=== PATIENT | male | born 1955 | race Caucasian/White ===

== ENCOUNTER 2021-01-18 08:34 | Outpatient (CLI) | payer OTHER, SELFPAY ==
--- NOTE | 2021-01-18 08:45 | ECG_ITS ---
Measurements Intervals [place] Rate: 80 P: 65 DE: 238 QRS: -16 QRSD: 95 T: -50 QT: 383 QTc: 444 Interpretive Statements SINUS RHYTHM WITH FIRST DEGREE AV BLOCK LOW QRS VOLTAGE IN PRECORDIAL LEADS BORDERLINE R WAVE PROGRESSION, ANTERIOR LEADS INFERIOR INFARCT, AGE INDETERMINATE BORDERLINE T WAVE ABNORMALITY- HIGH LATERAL LEADS BASELINE ARTIFACT- I, II, III, AVR, AVL, AVF ABNORMAL ECG Electronically Signed On 01-18-2021 9:13:32 CDT by Quentin Liriano D.O.
[2021-01-18 10:07] LABS: Anion Gap 6 mmol/L (8-16); Blood Urea Nitrogen 16 mg/dL (9-20); Calcium 9.5 mg/dL (8.4-10.2); Carbon Dioxide 30 mmol/L (22-30); Chloride 105 mmol/L (98-107); Estimated Glomerular Filt Rate > 60; Glucose 103 mg/dL (75-110); Potassium 3.7 mmol/L (3.4-5.0); Sodium 141 mmol/L (137-145)
== END 2021-01-18 08:35 | disposition home or self-care (01) ==
PROVIDERS: Anesthesiology; PCP Family Medicine; Visit Provider Plastic Surgery
DX: Z79.899 Other long term (current) drug therapy (principal); E78.2 Mixed hyperlipidemia; F17.210 Nicotine dependence, cigarettes, uncomplicated; I10 Essential (primary) hypertension; Z01.818 Encounter for other preprocedural examination
CPT/HCPCS: 36415; 80048; 93005

== ENCOUNTER → 2021-01-20 01:25 | Outpatient (CLI) | payer OTHER, SELFPAY ==
[2021-01-20 19:13] LABS: SARS-CoV-2 RNA PCR Negative
== END ==
PROVIDERS: PCP Family Medicine; Visit Provider Plastic Surgery
DX: Z01.812 Encounter for preprocedural laboratory examination (principal); Z20.822 Contact with and (suspected) exposure to COVID-19
CPT/HCPCS: C9803; U0003; U0005

== ENCOUNTER 2021-01-24 03:13 | Day surgery (SDC) | payer OTHER, SELFPAY ==
[2021-01-17 09:52] VITALS: BMI 35.9
[2021-01-24 07:22] VITALS: BP 133/83; PULSE 80; RESP 16; TEMP 36.4; O2SAT 96
[2021-01-24] MEDS: LACTATED RINGERS 1,000 ML 30 ML IV CONT (07:30)
--- NOTE | 2021-01-24 07:35 | WPDHPUPDATE1 ---
History and Physical Update Update Date/Time: 01/24/21 07:35 History and Physical has been reviewed, including an updated exam of the patient. There are NO changes in the patient's condition. Risks, benefits, and alternatives have been discussed and questions answered. Patient agrees to proceed with procedure.
--- NOTE | 2021-01-24 07:35 | WPDANESEPPF ---
Anes - Initial Pre Proc Eval Procedure: Operation Date: 01/24/21 09:00 Proposed Procedures p Bilateral Open Carpal Tunnel Release - Todd Panchal MD Date/Time: 01/24/21 07:35 Surgeon: Todd Panchal MD Pre Op Diagnosis: Bilateral Carpal Tunnel Syndrome Patient Data Age: 65 Gender: M Height: 1.83 m Weight: 120 kg Allergies Allergy/AdvReac Type Severity Reaction Status Date / Time No Known Allergies Allergy Verified 01/24/21 07:27 Home Medications Medication Instructions Recorded Confirmed Type lisinopril 20 1 tablet PO BID #180 tablet 12/30/19 01/24/21 Rx mg-hydrochlorothiazide 12.5 mg tablet amlodipine 10 mg tablet 10 mg PO DAILY #90 tablet 05/18/20 01/24/21 Rx atorvastatin 40 mg tablet 40 mg PO DAILY #90 tablet 05/18/20 01/24/21 Rx allopurinol 300 mg tablet 300 mg PO DAILY #90 tablet 11/15/20 01/24/21 Rx Patient hx anesthesia problems: none Family hx anesthesia problems: none PMFSH Past Medical History Medical History (Updated 01/24/21 @ 07:36 by Jovani Finley DO) Benign hypertension Hypothyroid Mixed hyperlipidemia Family History Family History Father Heart disease Grandparent Diabetes mellitus Family history of glaucoma Family history of cardiovascular disease Cerebrovascular accident Family history of type 2 diabetes mellitus Father Malignant neoplasm of prostate Other No family history of diabetes mellitus No family history of hypertension No family history of malignant neoplasm Social History Social History Smoking packs per day: 1 Smoking cigarettes per day: 20.0 Years smoked: 30 Smoking pack-years: 30.00 Smoking end date: 11/03/10 Alcohol intake: current Alcohol use details: SOCIAL - A COUPLE TIMES A WEEK Substance use: never Substance use type: does not use Living arrangements: with family Spiritual care concerns: No Anes - Eval Final PreProcedure Day of Procedure 01/24/21 07:35 Patient weight: obese Heart: regular rate and rhythm Lungs: clear to auscultation and normal air movement Airway: Mallampati scale class III Neurological: alert and oriented Last oral intake: >/= 8 hours ASA classification: III Emergent: no Anesthetic plan: proceed Anesthesia type and monitoring: general GIVS and standard monitoring Informed Consent: The patient's anesthetic plan and its attendant risks and benefits were discussed with the patient/family/POA. Questions were solicited and answers provided to the satisfaction of the patient/family/POA.
--- NOTE | 2021-01-24 08:01 | PM.OP ---
Procedure Note - Brief Procedure Note - Brief Date of procedure: 01/24/21 Pre-op diagnosis: Bilateral Carpal Tunnel Syndrome Post-op diagnosis: same Procedure performed: B OCTR Anesthesia: MAC Surgeon: Todd Panchal MD Drains: No Packing: No Pathology: none sent Complications: No immediate complications Condition: stable Disposition: same day
[2021-01-24] MEDS: LIDO 1%/EPINEPHRINE 1:100,000 50 ML VIAL 10 ML INFILTRATE (08:15)
[2021-01-24] MEDS: BACITRACIN OINTMENT 15 GM TUBE 1 APPLIC TOPICAL (08:36)
[2021-01-24 08:39] VITALS: BP 110/59; PULSE 78; RESP 14; O2SAT 93
--- NOTE | 2021-01-24 08:48 | PM.PROC ---
Procedure Note - Detailed Date of procedure: 01/24/21 Pre-op diagnosis: Bilateral Carpal Tunnel Syndrome Post-op diagnosis: same Procedure performed: Bilateral open carpal tunnel release Description of procedure: The 2 sites were marked in holding area. He was taken to the operating room and placed supine on the operating table. A time-out was held and confirmed. The patient was given some IV sedation as the 2 extremities were prepped on separate hand tables. Each was marked for the incision and locally infiltrated with 1% lidocaine with epinephrine the right hand was done 1st started with elevation of the tourniquet to 250 mmHg. The incision was made in the palm and dissection was carried bluntly through the subcutaneous tissue to the palmar aponeurosis. This and the transverse carpal ligament were incised with a 15. Blade. Under 3 point retraction the ligament was visualized and divided distally and proximally to completely release it. There was no unusual anatomy noted. The skin was closed with interrupted 4-0 nylon suture small bandage with Johnnie wrap was applied the tourniquet was released. Attention turned to left side the tourniquet was elevated to 250 mmHg. The incision was made as marked in the dissection was carried bluntly through the subcutaneous tissue to the palmar aponeurosis. This and the transverse carpal ligament were incised with a number 15 blade opening the canal. Under 3 point retraction the ligament was visualized and divided distally and proximally for complete release. The skin wound was closed with interrupted 4-0 nylon suture. The usual bandage applied the tourniquet was released. Discharge instructions wound care and follow-up and a prescription for hydrocodone 5/325 10. Surgeon: Todd Panchal MD
[2021-01-24 09:00] VITALS: BP 128/64; PULSE 71; RESP 20
[2021-01-24 09:40] VITALS: BP 120/65; PULSE 67; RESP 20
== END 2021-01-24 09:45 | disposition home or self-care (01) ==
PROVIDERS: PCP Family Medicine; Visit Provider Plastic Surgery
PROC: (CPT 64721; principal; 2021-01-24 09:00)
DX: G56.03 Carpal tunnel syndrome, bilateral upper limbs (principal); I10 Essential (primary) hypertension; E78.2 Mixed hyperlipidemia; E03.9 Hypothyroidism, unspecified; Z87.891 Personal history of nicotine dependence; E66.9 Obesity, unspecified; Z68.34 Body mass index [BMI] 34.0-34.9, adult
CPT/HCPCS: 64721; 36415; 80048; 93005; A9270; C9803; J1100; J2250; J2405; J2704; J7120; U0003; U0005

== ENCOUNTER 2021-12-13 07:18 | Outpatient (CLI) | payer MEDICARE, SELFPAY ==
[2021-12-13 07:55] LABS: Basophils Percent Auto 0.5 % (0.2-1.2); Eosinophils Absolute Auto 0.1 K/mm3 (0-0.3); Hematocrit 50.6 % (42.0-52.0); Hemoglobin 16.8 g/dL (14.0-18.0); Immature Granulocyte Absolute 0.01 K/mm3 (0.00-0.031); Immature Granulocyte Percent A 0.2 % (0-0.5); Lymphocytes Absolute Auto 2.33 K/mm3 (0.9-3.2); Lymphocytes Percent Auto 35.7 % (18.3-44.2); Mean Corpuscular HGB Conc 33.2 g/dl (32-36); Mean Corpuscular Hemoglobin 32.6 pg (26-34); Mean Corpuscular Volume 98.1 fl (80-100); Mean Platelet Volume 9.8 fl (7.4-10.4); Monocytes Absolute Auto 0.6 K/mm3 (0.1-0.6); Monocytes Percent Auto 8.4 % (2.6-8.5); Neutrophils Absolute Auto 3.5 K/mm3 (1.3-6.7); Neutrophils Percent Auto 53.2 % (45.5-73.1); Platelet Count Result 205 k/mm3 (150-375); Red Blood Count 5.16 M/mm3 (4.6-6.20); Red Cell Distribution Width 12.9 % (11.5-14.5); White Blood Count 6.5 K/mm3 (4.5-10.0)
[2021-12-13 08:08] LABS: Alanine Aminotransferase 68 U/L (4-50); Albumin Level 4.5 g/dL (3.5-5.1); Alkaline Phosphatase 89 U/L (38-126); Anion Gap 8 mmol/L (8-16); Aspartate Amino Transferase 44 U/L (17-59); Bilirubin,Total 0.7 mg/dL (0.2-1.3); Blood Urea Nitrogen 19 mg/dL (9-20); Calcium 9.3 mg/dL (8.4-10.2); Carbon Dioxide 28 mmol/L (22-30); Chloride 106 mmol/L (98-107); Cholesterol 154 mg/dL (0-200); Estimated Glomerular Filt Rate > 60; Glucose 99 mg/dL (65-110); HDL Direct 33 mg/dL; Potassium 4.2 mmol/L (3.4-5.0); Sodium 142 mmol/L (137-145); Triglycerides 137 mg/dL (<150)
[2021-12-13 08:13] LABS: Hemoglobin A1C 5.8 % (<5.7)
[2021-12-13 08:19] LABS: LDL Cholesterol Direct 90 mg/dL
[2021-12-13 08:38] LABS: Prostate Specific Antigen 1.2 ng/mL (< OR = 4.0); Thyroid Stimulating Hormone 0.936 uIU/mL (0.465-4.680)
== END 2021-12-13 07:19 | disposition home or self-care (01) ==
PROVIDERS: PCP Family Medicine; Visit Provider Family Medicine
DX: R73.03 Prediabetes (principal); E03.9 Hypothyroidism, unspecified; E78.2 Mixed hyperlipidemia; I10 Essential (primary) hypertension; Z79.899 Other long term (current) drug therapy; Z12.5 Encounter for screening for malignant neoplasm of prostate
CPT/HCPCS: 36415; 80053; 80061; 83036; 84153; 84439; 84443; 85025; G0103

== ENCOUNTER 2022-11-18 01:21 | Day surgery (SDC) | payer MEDICARE, SELFPAY ==
[2022-10-31 14:14] VITALS: BMI 36.8
[2022-11-18 06:24] VITALS: BP 140/76; PULSE 95; RESP 18; TEMP 36.1; O2SAT 93
[2022-11-18] MEDS: LACTATED RINGERS 1,000 ML 150 ML IV CONT (06:36)
--- NOTE | 2022-11-18 07:20 | PM.HPGS ---
History of Present Illness History of Present Illness Consent: Risks, benefits, and alternatives have been discussed and questions answered. Patient agrees to proceed with procedure. Chief complaint: History of colon polyps Narrative: Todd Arriola Jr. is a 67 year old male Presents for screening colonoscopy. Patient has a history of adenomatous colon polyp removed at time of last colonoscopy 2016. Patient reports his current weight appetite and bowel movements are normal. Patient denies abdominal pain. He has had no bleeding. Family history noncontributory. Review of Systems Review of Systems: Review of systems noncontributory. [facility] Past Medical History Medical History Benign hypertension Hypothyroid Mixed hyperlipidemia Family History Family History Father Heart disease Grandparent Diabetes mellitus Family history of glaucoma Family history of cardiovascular disease Cerebrovascular accident Family history of type 2 diabetes mellitus Father Malignant neoplasm of prostate Other No family history of diabetes mellitus No family history of hypertension No family history of malignant neoplasm Social History Social History Smoking packs per day: 1 Smoking cigarettes per day: 20.0 Years smoked: 30 Smoking pack-years: 30.00 Smoking status: Former smoker Tobacco type: cigarettes Smoking end date: 11/03/10 Alcohol intake: current Alcohol use details: SOCIAL - A COUPLE TIMES A WEEK Substance use: never Substance use type: does not use Lack of Transportation: No Lack of Food: Never True Current Housing: I Have Housing Concerned About Future Housing: No Difficulty Paying Gas/Electric Bills: No Difficulty Paying for Meds: No Currently Unemployed: No Education: Decline to Answer Difficulty w/ Childcare or Family Care: No Living arrangements: with family Spiritual care concerns: No Meds Home Medications and Allergies Home Medications Medication Instructions Recorded Confirmed Type sodium,potassium,mag sulfates 17.5 See Rx Instructions PO .COMPLEX 09/17/22 10/31/22 Rx gram-3.13 gram-1.6 gram oral soln #354 mL (Suprep Bowel Prep Kit) allopurinol 300 mg tablet 300 mg PO DAILY 10/31/22 10/31/22 History amlodipine 10 mg tablet 10 mg PO DAILY 10/31/22 10/31/22 History atorvastatin 40 mg tablet 40 mg PO DAILY 10/31/22 10/31/22 History lisinopril 20 1 tablet PO BID 10/31/22 10/31/22 History mg-hydrochlorothiazide 12.5 mg tablet omeprazole 20 mg capsule,delayed 20 mg PO DAILY 10/31/22 10/31/22 History release Allergies Allergy/AdvReac Type Severity Reaction Status Date / Time No Known Allergies Allergy Verified 11/18/22 06:23 Vital Signs Vital Signs - 24 hr 11/18/22 06:24 Temperature 96.9 F L Pulse Rate 95 Respiratory Rate 18 Blood Pressure 140/76 Pulse Oximetry 93 Oxygen Delivery Room Air Exam Narrative: Physical exam reveals patient to be alert. Vital signs stable. HEENT exam is unremarkable. Patient is anicteric. Lungs are clear to auscultation and percussion. Heart is without murmur or extra sounds. Abdomen bowel sounds are present soft nontender with no organomegaly. Digital external rectal exam is normal. Assessment and Plan Assessment and plan (1) History of colon polyps: Code(s): Z86.010 - Personal history of colonic polyps Status: Acute Assessment and Plan: Patient has several benign adenomatous colon polyps removed from the colon at time of previous colonoscopy 2017. Plan for surveillance colonoscopy now. Consider this at 5 year intervals in the future. Further recommendations may be given after endoscopy.
--- NOTE | 2022-11-18 07:23 | WPDANESEPPF ---
Anes - Initial Pre Proc Eval Procedure: Operation Date: 11/18/22 07:30 Proposed Procedures p Screening Colonoscopy - Thom Shelby MD Date/Time: 11/18/22 07:23 Surgeon: Thom Shelby MD Pre Op Diagnosis: History of colon polyps Patient Data Age: 67 Gender: M Height: 1.83 m Weight: 121 kg Last Vital Signs Temp 96.9 F L 11/18/22 06:24 Pulse 95 11/18/22 06:24 Resp 18 11/18/22 06:24 BP 140/76 11/18/22 06:24 Pulse Ox 93 11/18/22 06:24 O2 Del Method Room Air 11/18/22 06:24 Allergies Allergy/AdvReac Type Severity Reaction Status Date / Time No Known Allergies Allergy Verified 11/18/22 06:23 Home Medications Medication Instructions Recorded Confirmed Type sodium,potassium,mag sulfates 17.5 See Rx Instructions PO .COMPLEX 09/17/22 10/31/22 Rx gram-3.13 gram-1.6 gram oral soln #354 mL (Suprep Bowel Prep Kit) allopurinol 300 mg tablet 300 mg PO DAILY 10/31/22 10/31/22 History amlodipine 10 mg tablet 10 mg PO DAILY 10/31/22 10/31/22 History atorvastatin 40 mg tablet 40 mg PO DAILY 10/31/22 10/31/22 History lisinopril 20 1 tablet PO BID 10/31/22 10/31/22 History mg-hydrochlorothiazide 12.5 mg tablet omeprazole 20 mg capsule,delayed 20 mg PO DAILY 10/31/22 10/31/22 History release Patient hx anesthesia problems: none Family hx anesthesia problems: none Results Review: All pre-operative results and documents have been reviewed as part of the pre-operative evaluation. [facility] Past Medical History Medical History Benign hypertension Hypothyroid Mixed hyperlipidemia Family History Family History Father Heart disease Grandparent Diabetes mellitus Family history of glaucoma Family history of cardiovascular disease Cerebrovascular accident Family history of type 2 diabetes mellitus Father Malignant neoplasm of prostate Other No family history of diabetes mellitus No family history of hypertension No family history of malignant neoplasm Social History Social History (Reviewed 09/10/22 @ 11:04 by BEATRIZ Swann Smoking packs per day: 1 Smoking cigarettes per day: 20.0 Years smoked: 30 Smoking pack-years: 30.00 Smoking status: Former smoker Tobacco type: cigarettes Smoking end date: 11/03/10 Alcohol intake: current Alcohol use details: SOCIAL - A COUPLE TIMES A WEEK Substance use: never Substance use type: does not use Lack of Transportation: No Lack of Food: Never True Current Housing: I Have Housing Concerned About Future Housing: No Difficulty Paying Gas/Electric Bills: No Difficulty Paying for Meds: No Currently Unemployed: No Education: Decline to Answer Difficulty w/ Childcare or Family Care: No Living arrangements: with family Spiritual care concerns: No Anes - Eval Final PreProcedure Day of Procedure 11/18/22 07:23 Patient weight: obese Heart: regular rate and rhythm Lungs: clear to auscultation Airway: Mallampati scale class II Neurological: alert and oriented Last oral intake: >/= 8 hours ASA classification: III Emergent: no Anesthetic plan: proceed Anesthesia type and monitoring: general GIVS and standard monitoring Results Review: All pre-operative results and documents have been reviewed as part of the pre-operative evaluation. Informed Consent: The patient's anesthetic plan and its attendant risks and benefits were discussed with the patient/family/POA. Questions were solicited and answers provided to the satisfaction of the patient/family/POA.
[2022-11-18 07:55] VITALS: BP 114/68; PULSE 82; RESP 18; O2SAT 91
[2022-11-18 08:05] VITALS: BP 120/77; PULSE 78; RESP 18; O2SAT 92
[2022-11-18 08:15] VITALS: BP 114/73; PULSE 75; RESP 18; O2SAT 93
== END 2022-11-18 08:24 | disposition home or self-care (01) ==
PROVIDERS: PCP Family Medicine; Visit Provider Internal Medicine Gastroenterology
PROC: 0DJD8ZZ Inspection of Lower Intestinal Tract, Via Natural or Artificial Opening Endoscopic (ICD-10-PCS; CPT 45378; principal; 2022-11-18 07:30)
DX: Z12.11 Encounter for screening for malignant neoplasm of colon (principal); K63.5 Polyp of colon; I10 Essential (primary) hypertension; E03.9 Hypothyroidism, unspecified; E78.2 Mixed hyperlipidemia; Z87.891 Personal history of nicotine dependence; E66.9 Obesity, unspecified; Z68.36 Body mass index [BMI] 36.0-36.9, adult
CPT/HCPCS: 45385; 88305; J2704; J7120

== ENCOUNTER → 2023-03-07 09:34 | Outpatient (CLI) | payer MEDICARE, SELFPAY ==
--- NOTE | ~2023-03-07 | XR_ITS ---
Right wrist Technique: PA, oblique, lateral, and ulnar deviation views were obtained. Clinical History: Pain Findings: No acute fracture or dislocation is seen. Osseous alignment is anatomic. Joint spaces are p reserved. Soft tissues are unremarkable. Impression: Unremarkable right wrist radiographs. Reviewed, dictated and finalized at location . Impression: Unremarkable right wrist radiographs.
--- NOTE | ~2023-03-07 | XR_ITS ---
Left wrist Technique: PA, oblique, lateral, and ulnar deviation views were obtained. Clinical History: Pain Findings: No acute fracture or dislocation is seen. There is moderate degenerative change of the radi al scaphoid articulation. Remaining joint spaces are preserved. Soft tissues are unremarkable. Impression: Moderate degenerative change at the radial scaphoid articulation. Reviewed, dictated and finalized at location . Impression: Moderate degenerative change at the radial scaphoid articulation.
== END ==
PROVIDERS: PCP Family Medicine; Visit Provider Family Medicine
DX: M25.531 Pain in right wrist (principal); M25.532 Pain in left wrist
CPT/HCPCS: 73110

== ENCOUNTER 2023-10-09 15:49 | Outpatient (CLI) | payer MEDICARE, SELFPAY ==
--- NOTE | ~2023-10-09 | CT_ITS ---
EXAMINATION: CT wrist LT wo con DATE: 10/09/2023 16:42 INDICATION: Left wrist pain. Left wrist osteoarthritis. TECHNIQUE: Computed tomography (CT) of the left wrist was performed without intravenous contrast. Aut omated exposure control and iterative reconstruction technique were employed. The dose-length product was 435.57 mGy-cm. COMPARISON: Left wrist radiographs 03/07/2023 FINDINGS: Scapholunate dissociation is noted. No acute fracture. There is ununited ossification adjac ent to the radial styloid. There is dorsal tilt of lunate, consistent with dorsal intercalated segmen kenia instability (DISI). There is severe osteoarthritis of radioscaphoid joint. There is moderate oste oarthritis of second carpometacarpal joint. There is moderate osteoarthritis of lunotriquetral joint and mild osteoarthritis of radiolunate joint and lunate-capitate joint. IMPRESSION: 1. 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 Reviewed, dictated and finalized at location [facility] [facility] IMPRESSION: 1. 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
== END 2023-10-09 15:50 | disposition home or self-care (01) ==
PROVIDERS: PCP Family Medicine; Visit Provider Plastic Surgery
DX: M19.032 Primary osteoarthritis, left wrist (principal)
CPT/HCPCS: 73200

== ENCOUNTER 2025-01-04 00:58 | Day surgery (SDC) | payer MEDICARE, SELFPAY ==
[2024-12-21 13:45] VITALS: BMI 34.6
[2025-01-04 06:11] VITALS: BP 148/77; PULSE 78; RESP 16; TEMP 36; O2SAT 98
[2025-01-04] MEDS: LACTATED RINGERS 1,000 ML 150 ML IV CONT (06:26)
--- NOTE | 2025-01-04 06:58 | WPDANESEPPF ---
Anes - Initial Pre Proc Eval Procedure: Operation Date: 01/04/25 07:30 Proposed Procedures p Esophagogastroduodenoscopy - Jim Fitzpatrick MD Date/Time: 01/04/25 06:58 Surgeon: Jim Fitzpatrick MD Pre Op Diagnosis: dysphagia,personal hx of digestive system Patient Data Age: 69 Gender: M Height: 1.83 m Weight: 119 kg Last Vital Signs Temp 36.0 C L 01/04/25 06:11 Pulse 78 01/04/25 06:11 Resp 16 01/04/25 06:11 BP 148/77 H 01/04/25 06:11 Pulse Ox 98 01/04/25 06:11 O2 Del Method Room Air 01/04/25 06:11 Allergies Allergy/AdvReac Type Severity Reaction Status Date / Time No Known Allergies Allergy Verified 01/04/25 06:08 Home Medications ?Medication ?Instructions ?Recorded ?Confirmed ?Type famotidine 40 mg tablet 40 mg PO DAILY #90 tabs 06/24/24 01/04/25 Rx allopurinol 300 mg tablet 300 mg PO DAILY #90 tabs 08/09/24 01/04/25 Rx atorvastatin 40 mg tablet 40 mg PO DAILY #90 tabs 08/09/24 01/04/25 Rx lisinopril 20 1 tablet PO DAILY #90 tabs 08/09/24 01/04/25 Rx mg-hydrochlorothiazide 12.5 mg tablet amlodipine 10 mg tablet 10 mg PO DAILY #90 tabs 11/04/24 01/04/25 Rx meloxicam 15 mg tablet 15 mg PO DAILY pain 12/21/24 01/04/25 History Patient hx anesthesia problems: none Family hx anesthesia problems: none Results Review: All pre-operative results and documents have been reviewed as part of the pre-operative evaluation. [facility] Past Medical History Medical History Arm wound Hypothyroid Mixed hyperlipidemia Benign hypertension Family History Family History Father Heart disease Grandparent Diabetes mellitus Family history of glaucoma Family history of cardiovascular disease Cerebrovascular accident Family history of type 2 diabetes mellitus Father Malignant neoplasm of prostate Other No family history of diabetes mellitus No family history of hypertension No family history of malignant neoplasm Social History Social History Smoking packs per day: 1 Smoking cigarettes per day: 20.0 Years smoked: 30 Smoking pack-years: 30.00 Smoking status: Former smoker Tobacco type: cigarettes Smoking end date: 11/03/10 Alcohol intake: current Alcohol use details: SOCIAL - A COUPLE TIMES A WEEK Substance use: never Substance use type: does not use Lack of Transportation: No Lack of Food: Never True Current Housing: I Have Housing Concerned About Future Housing: No Difficulty Paying Gas/Electric Bills: No Difficulty Paying for Meds: No Currently Unemployed: No Education: Decline to Answer Difficulty w/ Childcare or Family Care: No Living arrangements: with family Spiritual care concerns: No Anes - Eval Final PreProcedure Day of Procedure 01/04/25 06:58 Patient weight: obese Heart: regular rate and rhythm Lungs: clear to auscultation Airway: Mallampati scale class II Neurological: alert and oriented Last oral intake: >/= 8 hours ASA classification: III Emergent: no Anesthetic plan: proceed Anesthesia type and monitoring: general GIVS and standard monitoring Results Review: All pre-operative results and documents have been reviewed as part of the pre-operative evaluation. Informed Consent: The patient's anesthetic plan and its attendant risks and benefits were discussed with the patient/family/POA. Questions were solicited and answers provided to the satisfaction of the patient/family/POA.
--- NOTE | 2025-01-04 07:25 | PM.HPGS ---
History of Present Illness History of Present Illness Consent: Risks, benefits, and alternatives have been discussed and questions answered. Patient agrees to proceed with procedure. Chief complaint: dysphagia,personal hx of digestive system Narrative: Todd Arriola Jr. is a 69 year old male here for dysphagia to solids, he had EGD in 2017 which showed a moderate benign-appearing intrinsic stenosis that was dilated with a 50 Fr Fenton dilator, and Grade C reflux esophagitis. Review of Systems Review of Systems: All systems reviewed & are unremarkable except as noted in HPI and below PMFSH Past Medical History Medical History (Updated 01/04/25 @ 07:25 by Jim Fitzpatrick MD) Dysphagia Arm wound Hypothyroid Mixed hyperlipidemia Benign hypertension Family History Family History Father Heart disease Grandparent Diabetes mellitus Family history of glaucoma Family history of cardiovascular disease Cerebrovascular accident Family history of type 2 diabetes mellitus Father Malignant neoplasm of prostate Other No family history of diabetes mellitus No family history of hypertension No family history of malignant neoplasm Social History Social History Smoking packs per day: 1 Smoking cigarettes per day: 20.0 Years smoked: 30 Smoking pack-years: 30.00 Smoking status: Former smoker Tobacco type: cigarettes Smoking end date: 11/03/10 Alcohol intake: current Alcohol use details: SOCIAL - A COUPLE TIMES A WEEK Substance use: never Substance use type: does not use Lack of Transportation: No Lack of Food: Never True Current Housing: I Have Housing Concerned About Future Housing: No Difficulty Paying Gas/Electric Bills: No Difficulty Paying for Meds: No Currently Unemployed: No Education: Decline to Answer Difficulty w/ Childcare or Family Care: No Living arrangements: with family Spiritual care concerns: No Meds Home Medications and Allergies Home Medications ?Medication ?Instructions ?Recorded ?Confirmed ?Type famotidine 40 mg tablet 40 mg PO DAILY #90 tabs 06/24/24 01/04/25 Rx allopurinol 300 mg tablet 300 mg PO DAILY #90 tabs 08/09/24 01/04/25 Rx atorvastatin 40 mg tablet 40 mg PO DAILY #90 tabs 08/09/24 01/04/25 Rx lisinopril 20 1 tablet PO DAILY #90 tabs 08/09/24 01/04/25 Rx mg-hydrochlorothiazide 12.5 mg tablet amlodipine 10 mg tablet 10 mg PO DAILY #90 tabs 11/04/24 01/04/25 Rx meloxicam 15 mg tablet 15 mg PO DAILY pain 12/21/24 01/04/25 History Allergies Allergy/AdvReac Type Severity Reaction Status Date / Time No Known Allergies Allergy Verified 01/04/25 06:08 Vital Signs Vital Signs - 24 hr 01/04/25 06:11 Temperature 96.8 F L Pulse Rate 78 Respiratory Rate 16 Blood Pressure 148/77 H Pulse Oximetry 98 Oxygen Delivery Room Air Exam Const: General: comfortable and no acute distress HENMT: Face/Nose/Sinus: Normal nares present Eyes: General: appearance normal, both eyes and all related structures Neck: Neck: no JVD Resp: Auscultation: clear to auscultation bilaterally Cardio: Rate: regular rate Rhythm: regular rhythm GI: Inspection: non-distended GI Palp: Yes Soft to palpation Skin: General skin exam: normal color Neuro: Speech: normal speech Extrem: General: normal to inspection Psych: Mental Status: mental status grossly normal Assessment and Plan Assessment and plan (1) Dysphagia: Code(s): R13.10 - Dysphagia, unspecified Status: Acute Assessment and Plan: egd, probably will need dilatation
[2025-01-04 07:36] VITALS: BP 115/73; PULSE 76; RESP 24; O2SAT 94
[2025-01-04 07:46] VITALS: BP 117/72; PULSE 69; RESP 23; O2SAT 96
[2025-01-04 07:56] VITALS: BP 127/75; PULSE 72; RESP 22; O2SAT 96
== END 2025-01-04 08:03 | disposition home or self-care (01) ==
PROVIDERS: PCP Emergency Medicine; Referring Provider Nurse Practitioner Family; Visit Provider Internal Medicine Gastroenterology
PROC: 0DJ08ZZ Inspection of Upper Intestinal Tract, Via Natural or Artificial Opening Endoscopic (ICD-10-PCS; CPT 43249; principal; 2025-01-04 07:30)
DX: K22.2 Esophageal obstruction (principal); E03.9 Hypothyroidism, unspecified; E78.2 Mixed hyperlipidemia; I10 Essential (primary) hypertension; E66.9 Obesity, unspecified; Z68.35 Body mass index [BMI] 35.0-35.9, adult; Z87.891 Personal history of nicotine dependence; Z87.19 Personal history of other diseases of the digestive system; Z80.42 Family history of malignant neoplasm of prostate; Z82.49 Family history of ischemic heart disease and other diseases of the circulatory system
CPT/HCPCS: 43249; C1726; J2704; J7120

== ENCOUNTER 2025-02-02 07:06 | Outpatient (CLI) | payer MEDICARE, SELFPAY ==
--- OUTSIDE RECORDS SUMMARY | 2025-02-02 07:09 | XMS_ITS | Referral Summary ---
Author Organization [facility] Address [address] [place] [address] Care Team Providers Care Director Vaccine Name Role Phone Yves Billings MD Primary Care Provide r Encounters Date Type Department Care Team Description 12/20/2024 4:02 PM SHIPPING CLERK CRATING - 12/20/2024 11:59 PM SHIPPING CLERK CRATING Hospital Encounter [facility] [place] [facility]) [address] [place] [id number] Discharge Disposition: Discharge to home or self care 12/20/2024 2:09 PM SHIPPING CLERK CRATING - 12/20/2024 11:59 PM SHIPPING CLERK CRATING Hospital Encounter [facility] [address] [place] [phone] Right knee pain, unspecified chronicity Discharge Disposition: Discharge to home or self care 12/20/2024 2:20 PM SHIPPING CLERK CRATING Office Visit [facility] Orthopaedic Surgery [id number] [place] [address] 2nd [address] [place] [phone] Don Downs MD Right knee pain, unspecified chronicity (Primary Dx) from Last 3 Months Allergies No known active allergies Medications albuterol HFA (PROVENTIL HFA,VENTOLIN HFA,PROAIR HFA) 90 mcg/actuation inhaler INHALE 1 PUFF BY MOUTH EVERY 6 HOURS NEEDED FOR SHORTNESS OF BREATH OR WHEEZING 11/10/19 25 Active allopurinoL (ZYLOPRIM) 300 mg tablet Take 1 tablet (300 mg total) by mouth daily 10/31/20 24 Active amLODIPine (NORVASC) 10 mg tablet Take 1 tablet (10 mg total) by mouth daily 11/01/20 24 Active atorvastatin (LIPITOR) 40 mg tablet Take 1 tablet (40 mg total) by mouth daily 10/31/20 24 Active famotidine (PEPCID) 40 mg tablet Take 1 tablet (40 mg total) by mouth daily 09/25/20 24 Active lisinopril-hyd roCHLOROthiazi de (ZESTORETIC) 20-12.5 mg per tablet Take 1 tablet by mouth daily 10/31/20 24 Active meloxicam (MOBIC) 15 mg tablet TAKE 1 TABLET (15 MG TOTAL) BY MOUTH DAILY. 30 tablet 01/18/20 25 025 Active meloxicam (MOBIC) 15 mg tablet Take 1 tablet (15 mg total) by mouth daily 30 tablet 12/20/19 025 Discontinued Active Problems No known active problems Social History Tobacco Use Types Packs/Day Years Used Date Smoking Tobacco: Unknown Tobacco Cessation:Counseling Given: Not Answered Sex and Gender Information Value Date Recorded Sex Assigned at Not on file Legal Sex Male 6:34 PM SHIPPING CLERK CRATING Gender Identity Not on file Sexual Orientation Not on file Last Filed Vital Signs Vital Sign Reading Time Taken Comments Blood Pressure - - Pulse - - Temperature - - Respiratory Rate - - Oxygen Saturation - - Inhaled Oxygen Concentration - - Weight 115.7 kg (255 lb) 12/20/2024 2:0 4 PM SHIPPING CLERK CRATING patient reported Height 182.9 cm (6') 12/20/2024 2:04 PM SHIPPING CLERK CRATING patient reported Body Mass Index 34.58 12/20/2024 2:04 PM SHIPPING CLERK CRATING Plan of Treatment Not on file Procedures Procedure Name Priority Date/Time Associated Diagnosis Comments MSK MR OUTSIDE REFERENCE Routine 12/20/2024 4:02 PM SHIPPING CLERK CRATING XR KNEE RIGHT 3 VIEWS Schedule Routine, Read Routine (OP Routine) 12/20/2024 2:19 PM SHIPPING CLERK CRATING Right knee pain, unspecified chronicity from Last 3 Months Results * MSK MR Outside Reference (12/20/2024 4:02 PM SHIPPING CLERK CRATING) Impressions [facility] - 12/20/2024 4:02 PM SHIPPING CLERK CRATING These images are for Reference purposes only and have not been reviewed by [facility]iology. There will be no report generated by a [facility] Radiologist. Narrative [facility] - 12/20/2024 4:02 PM SHIPPING CLERK CRATING EXAMINATION: Images For Reference Purposes Only Don Downs MD IMG MRI PROCEDURES Final Result [facility] * XR Knee Right 3 Views (12/20/2024 2:19 PM SHIPPING CLERK CRATING) Anatomical Region Laterality Modality Lower Extremities, Knee Right Computed Radiography 12/20/2024 3:05 PM SHIPPING CLERK CRATING Impressions 12/20/2024 3:15 PM SHIPPING CLERK CRATING 1. No acute osseous abnormality. Dictated by: Reji Bradford M.D. The radiology attending physician has personally reviewed this study, and had reviewed and/or edited this written report and agrees with it. Electronically signed by: Driss Mcnair D.O. Narrative 12/20/2024 3:15 PM SHIPPING CLERK CRATING EXAMINATION: XR KNEE RIGHT 3 VIEWS HISTORY: Right knee pain COMPARISON: No comparisons are available. FINDINGS: No acute fracture. No dislocation. Joint spaces are preserved. No right knee joint effusion. Borderline patella baja. Atherosclerotic calcifications noted. Procedure Note Driss Mcnair, - 12/20/2024 EXAMINATION: XR KNEE RIGHT 3 VIEWS HISTORY: Right knee pain COMPARISON: No comparisons are available. FINDINGS: No acute fracture. No dislocation. Joint spaces are preserved. No right knee joint effusion. Borderline patella baja. Atherosclerotic calcifications noted. IMPRESSION: 1. No acute osseous abnormality. Dictated by: Reji Bradford M.D. The radiology attending physician has personally reviewed this study, and had reviewed and/or edited this written report and agrees with it. Electronically signed by: Driss Mcnair D.O. Don Downs MD IMG XR PROCEDURES Final Result from Last 3 Months Insurance COMMERCIAL GENERIC MEDICARE [place] MEDICARE SUPPLEMENT Care Teams Director Vaccine Relationship Specialty Start Date End Date Yves Billings MD [address] [place] [address] PCP - General Emergency Medicine 12/20/24
--- OUTSIDE RECORDS SUMMARY | 2025-02-02 07:11 | XMS_ITS | Clinical Summary ---
Author Organization [facility] Address [address] [place] [phone] Care Team Providers Care Senior Ssis Developer Name Role Phone Yves Billings MD Primary Care Provide r Allergies No known active allergies Medications albuterol [...] total) by mouth daily 30 tablet 12/20/19 25 025 Discontinued Active Problems No known active problems Encounters Date Type Department Care Team Description 12/20/2024 4:02 PM CONDUIT INSTALLER - 12/20/2024 11:59 PM CONDUIT INSTALLER Hospital Encounter [facility] [address] [place] [address] Discharge Disposition: Discharge to home or self care 12/20/2024 2:20 PM CONDUIT INSTALLER Office Visit [facility] Orthopaedic Surgery [address] [facility] [address]nd [address] [place] [phone] Don Downs MD Right knee pain, unspecified chronicity (Primary Dx) 12/20/2024 2:09 PM CONDUIT INSTALLER - 12/20/2024 11:59 PM CONDUIT INSTALLER Hospital Encounter [facility] [address] [place] [address] Right knee pain, unspecified chronicity Discharge Disposition: Discharge to home or self care from Last 3 Months Medical History Medical History Date Comments Hypertension Gout Hypercholesteremia Family History Medical History Relation Name Comments Diabetes Mother Relation Name Status Comments Mother Social History Tobacco Use Types Packs/Day Years Used Date Smoking Tobacco: Unknown Tobacco Cessation:Counseling Given: Not Answered Sex and Gender Information Value Date Recorded Sex Assigned at Not on file Legal Sex Male 6:34 PM CONDUIT INSTALLER Gender Identity Not on file Sexual Orientation Not on file Obstetrics History Last Filed Vital Signs Vital Sign Reading Time Taken Comments Blood Pressure - - Pulse - - Temperature - - Respiratory Rate - - Oxygen Saturation - - Inhaled Oxygen Concentration - - Weight 115.7 kg (255 lb) 12/20/2024 2:0 4 PM CONDUIT INSTALLER patient reported Height 182.9 cm (6') 12/20/2024 2:04 PM CONDUIT INSTALLER patient reported Body Mass Index 34.58 12/20/2024 2:04 PM CONDUIT INSTALLER Plan of Treatment Health Maintenance Due Date Last Done Comments Colon Cancer Screening-Colonoscopy 1955 Depression Screening 1956 Fall Risk Assessment 1955 Hepatitis C Screening 1956 Prostate Cancer Screening-PSA 1956 DTaP/Tdap/Td Vaccine (1 - Tdap) 1967 Hepatitis B Screening 1974 Pneumococcal vaccine 65+ (1 of 1 - PCV) 2006 Zoster Vaccine (1 of 2) 2006 Abdominal Aortic Aneurysm (AAA) Screen 2021 Well Visit 65+ 2021 Influenza Vaccine (#1) 2024 Procedures Procedure Name Priority Date/Time Associated Diagnosis Comments MSK MR OUTSIDE REFERENCE Routine 12/20/2024 4:02 PM CONDUIT INSTALLER XR KNEE RIGHT 3 VIEWS Schedule Routine, Read Routine (OP Routine) 12/20/2024 2:19 PM CONDUIT INSTALLER Right knee pain, unspecified chronicity from Last 3 Months Results * MSK MR Outside Reference (12/20/2024 4:02 PM CONDUIT INSTALLER) Impressions [facility] - 12/20/2024 4:02 PM CONDUIT INSTALLER These images are for Reference purposes only and have not been reviewed by [facility] Radiology. There will be no report generated by a [facility] Radiologist. Narrative [facility] - 12/20/2024 4:02 PM CONDUIT INSTALLER EXAMINATION: Images For Reference Purposes Only us Don Downs MD IM MRI PROCEDURES Final Result [facility] * XR Knee Right 3 Views (12/20/2024 2:19 PM CONDUIT INSTALLER) Anatomical Region Laterality Modality Lower Extremities, Knee Right Computed Radiography 12/20/2024 3:05 PM CONDUIT INSTALLER Impressions 12/20/2024 3:15 PM CONDUIT INSTALLER 1. No acute osseous abnormality. Dictated by: Reji Bradford M.D. The radiology attending physician has personally reviewed this study, and had reviewed and/or edited this written report and agrees with it. Electronically signed by: Driss Mcnair D.O. Narrative 12/20/2024 3:15 PM CONDUIT INSTALLER EXAMINATION: XR KNEE RIGHT 3 VIEWS HISTORY: [...] it. Electronically signed by: Driss Mcnair D.O. us Don Downs MD IMG XR PROCEDURES Final Result from Last 3 Months Insurance MEDICARE COMMERCIAL GENERIC MEDICARE [place] MEDICARE SUPPLEMENT Care Teams Senior Ssis Developer Relationship Specialty Start Date End Date Yves Billings MD [address] [place] [address] PCP - General Emergency Medicine 12/20/24
--- OUTSIDE RECORDS SUMMARY | 2025-02-02 07:11 | XMS_ITS | Clinical Summary ---
Author Organization [facility] Address [address] [place] [address] Care Team Providers Care Outsole Cementer Name Role Phone Errol Haq MD Primary Care Provider [phone] Social History Tobacco Use Types Packs/Day Years Used Date Smoking Tobacco: Never Assessed Sex and Gender Information Value Date Recorded Sex Assigned at Not on file Legal Sex Male 9:17 AM RETAIL SUPPORT ASSOCIATE Gender Identity Not on file Sexual Orientation Not on file Plan of Treatment Health Maintenance Due Date Last Done Comments Colorectal Cancer Screening Colonoscopy (10 Years) 1956 Hepatitis C 1974 DTaP, Tdap and Td Vaccines ( 1 - Tdap) 1975 Zoster Vaccines (1 of 2) 2006 Pneumococcal Vaccine: 65+ Ye ars (1 of 1 - PCV) 2021 COVID-19 Vaccine ( - 2023-2 5 season) 2024 RSV Immunization or 60+ Years (1 - 1-dose 75+ series) 2031 Meningococcal B Vaccine Aged Out No l onger eligible based on patient's age to complete this topic Meningococcal Vaccine Aged Out No kiesha gianna eligible based on patient's age to complete this topic RSV Immunizations Under 20 Months Aged Out No longer eligible based on patient's age to complete this topic Insurance [employer] Care Teams Outsole Cementer Relationship Specialty Start Date End Date Errol Haq MD [address] [place] [address] PCP - General FAMILY PRACTICE 01/15/21
[2025-02-02 08:00] LABS: Basophils Percent Auto 0.5 % (0.2-1.2); Eosinophils Absolute Auto 0.1 K/mm3 (0-0.3); Eosinophils Percent Auto 1.5 % (0-4.4); Hematocrit 47.8 % (42.0-52.0); Hemoglobin 16.2 g/dL (14.0-18.0); Immature Granulocyte Absolute 0.01 K/mm3 (0.00-0.031); Immature Granulocyte Percent A 0.2 % (0-0.5); Lymphocytes Percent Auto 41.7 % (18.3-44.2); Mean Corpuscular HGB Conc 33.9 g/dl (32-36); Mean Corpuscular Hemoglobin 32.7 pg (26-34); Mean Corpuscular Volume 96.6 fl (80-100); Mean Platelet Volume 9.9 fl (7.4-10.4); Monocytes Absolute Auto 0.4 K/mm3 (0.1-0.6); Monocytes Percent Auto 6.5 % (2.6-8.5); Neutrophils Absolute Auto 3.2 K/mm3 (1.3-6.7); Neutrophils Percent Auto 49.6 % (45.5-73.1); Platelet Count Result 205 k/mm3 (150-375); Red Blood Count 4.95 M/mm3 (4.6-6.20); Red Cell Distribution Width 13.2 % (11.5-14.5); White Blood Count 6.5 K/mm3 (4.5-10.0)
[2025-02-02 08:11] LABS: Alanine Aminotransferase 47 U/L (6-50); Albumin Level 4.4 g/dL (3.5-5.1); Alkaline Phosphatase 94 U/L (38-126); Anion Gap 8 mmol/L (4-12); Aspartate Amino Transferase 35 U/L (17-59); Bilirubin,Total 0.8 mg/dL (0.2-1.3); Blood Urea Nitrogen 21 mg/dL (9-20); Carbon Dioxide 28 mmol/L (22-30); Chloride 107 mmol/L (98-107); Cholesterol 118 mg/dL (0-200); Estimated Glomerular Filt Rate > 60; Glucose 95 mg/dL (65-110); HDL Direct 38 mg/dL; Potassium 3.8 mmol/L (3.4-5.0); Sodium 143 mmol/L (137-145); Triglycerides 87 mg/dL (<150)
[2025-02-02 08:23] LABS: LDL Cholesterol Direct 58 mg/dL
[2025-02-02 09:15] LABS: Vitamin D 25 Hydroxy 13.9 ng/mL
[2025-02-02 09:19] LABS: Hemoglobin A1C 5.7 % (<5.7)
== END 2025-02-02 07:07 | disposition home or self-care (01) ==
PROVIDERS: PCP Emergency Medicine; Visit Provider Emergency Medicine
DX: E11.9 Type 2 diabetes mellitus without complications (principal); I10 Essential (primary) hypertension; E78.5 Hyperlipidemia, unspecified; E55.9 Vitamin D deficiency, unspecified; R53.83 Other fatigue
CPT/HCPCS: 36415; 80053; 80061; 82306; 83036; 84443; 85025

== ENCOUNTER 2025-08-08 06:49 | Outpatient (CLI) | payer MEDICARE, SELFPAY ==
--- OUTSIDE RECORDS SUMMARY | 2025-02-28 02:30 | XMS_ITS | Continuity of Care Document ---
Author Organization [facility] Address [address] [place] [address] Phone Care Team Providers Care Seat Joiner Name Role Phone Carson Lawson PT Unavailable Unavailable Procedures Procedure Date Therapeutic Activities Neuromuscular Re-Ed Therapeutic Activities Neuromuscular Re-Ed Progress Note Therapeutic Activities Neuromuscular Re-Ed Therapeutic Activities Neuromuscular Re-Ed Therapeutic Activities Neuromuscular Re-Ed Therapeutic Activities Neuromuscular Re-Ed Therapeutic Activities Neuromuscular Re-Ed Therapeutic Activities Neuromuscular Re-Ed Therapeutic Activities Neuromuscular Re-Ed Therapeutic Activities Neuromuscular Re-Ed Doc neg elder mal no plan PT Evaluation Moderate Complexity Therapeutic Activities Neuromuscular Re-Ed Free Assessment Advance Directives Directive Yes / No Effective Date File Name No Information Encounters Encounter Description Practice Location Reason(s) For Visit Diagnoses Date Provider Providers Copied on Encounter [facility], [address], [place], [place], [id number], [place] tel:[phone] [place] No Information Renny Byrd. . Referring Provider: Don Downs, [address] [facility] [address], [place], [address]. tel:[phone] [facility], [place], [place], [id number], [place] tel:[phone] [place] No Information Renny Carson. . Referring Provider: Don Downs, [address] [facility] [address], [place], [address]. tel:[phone] [facility], [address], [place], [place], [id number], [place] tel:[phone] [place] No Information Renny Carson. . Referring Provider: Don Downs, [address] [facility] [address], [place], [address]. tel:[phone] [facility] [address], [place], [place], [id number], [place] tel:[phone] [place] No Information Renny Carson. . Referring Provider: Don Downs, [address] [facility] [address], [place], [address]. tel:[phone] [facility], [place], [place], [id number], [place] tel:[phone] [place] No Information Renny Carson. . Referring Provider: Don Downs, [address] [facility] [address], [place], [address]. tel:[phone] [facility], [place], [place], [id number], [place] tel:[phone] [place] No Information Renny Carson. . Referring Provider: Don Downs, [address] [facility] [address], [place], [address]. tel:[phone] [facility], [address], [place], [place], [id number], [place] tel:[phone] [place] No Information Renny Carson. . Referring Provider: Don Downs, [address] [facility] [address], [place], [address]. tel:[phone] [facility], [address], [place], [place], [id number], [place] tel:[phone] [place] No Information Renny Carson. . Referring Provider: Don Downs, [address] [place] [address], [place], [address]. tel:[phone] [facility], [address], [place], [place], [id number], [place] tel:[phone] [place] No Information Renny Carson. . Referring Provider: Don Downs, [address] [place] [address], [place], [address]. tel:[phone] [facility], [address], [place], [place], [id number], [place] tel:[phone] [place] No Information Renny Carson. . Referring Provider: Don Downs, [address] [place] [address], [place], [address]. tel:[phone] [facility], [address], [place], [place], [id number], [place] tel:[phone] [place] No Information Renny Carson. . Referring Provider: Don Downs, [address] [facility] [address], [place], [address]. tel:[phone] [facility], [address], [place], [place], [id number], [place] tel:[phone] [place] No Information Renny Lopez . Referring Provider: Physician Screen. Family History Family Member Type Diagnosis Age At Onset No Information Payers Payer name Insurance type Covered democrat ID Authorkeegan javed(s) Medicare [place] [id number] [place] Medicare Supplement [id number] Social History Type Description Quantity Date Captured Comments Sex Male Smoking Status No Information Chief Complaint And Reason For Visit No Information Reason For Referral Reason For Referral No Information History Of Present Illness Encounter Date Complaint History Of Prese nt Illness No Information Functional Status Date Functional Assessmen t No Information Instructions Date Instruction Additional Infor mation No Information Assessments Type Assessment Date No Information Patient Care Teams Name Effective Dates (start - stop) Status Members No Information
--- OUTSIDE RECORDS SUMMARY | 2025-08-08 06:53 | XMS_ITS | Clinical Summary ---
Author Organization [facility] Address [address] [place] [phone] Care Team Providers Care Application Assistant Name Role Phone Yves Billings MD Primary Care Provide r Allergies No known active allergies Medications albuterol HFA (PROVENTIL HFA,VENTOLIN HFA,PROAIR HFA) 90 mcg/actuation inhaler INHALE 1 PUFF BY MOUTH EVERY 6 HOURS NEEDED FOR SHORTNESS OF BREATH OR WHEEZING 5 Active allopurinoL (ZYLOPRIM) 300 mg tablet Take 1 tablet (300 mg total) by mouth daily 4 Active amLODIPine (NORVASC) 10 mg tablet Take 1 tablet (10 mg total) by mouth daily 4 Active atorvastatin (LIPITOR) 40 mg tablet Take 1 tablet (40 mg total) by mouth daily 4 Active famotidine (PEPCID) 40 mg tablet Take 1 tablet (40 mg total) by mouth daily 4 Active lisinopril-hydr oCHLOROthiazide (ZESTORETIC) 20-12.5 mg per tablet Take 1 tablet by mouth daily 4 Active meloxicam (MOBIC) 15 mg tablet TAKE 1 TABLET (15 MG TOTAL) BY MOUTH DAILY. 30 tablet 5 Active Active Problems No known active problems Medical History Medical History Date Comments Hypertension Gout Hypercholesteremia Family History Medical History Relation Name Comments Diabetes Mother Relation Name Status Comments Mother Social History Tobacco Use Types Packs/Day Years Used Date Smoking Tobacco: Unknown Tobacco Cessation:Counseling Given: Not Answered Sex and Gender Information Value Date Recorded Sex Assigned at Not on file Legal Sex Male 6:34 PM SAFETY ADVISOR Gender Identity Not on file Sexual Orientation Not on file Obstetrics History Last Filed Vital Signs Vital Sign Reading Time Taken Comments Blood Pressure - - Pulse - - Temperature - - Respiratory Rate - - Oxygen Saturation - - Inhaled Oxygen Concentration - - Weight 115.7 kg (255 lb) 12/20/2024 2:0 4 PM SAFETY ADVISOR patient reported Height 182.9 cm (6') 12/20/2024 2:04 PM SAFETY ADVISOR patient reported Body Mass Index 34.58 12/20/2024 2:04 PM SAFETY ADVISOR Plan of Treatment Health Maintenance Due Date [...] Well Visit 65+ 2021 Influenza Vaccine (#1) 2025 [id number] MEDICARE [facility] Address: [address] [address] COMMERCIAL GENERIC MEDICARE [facility] Address: [address] [address] [place] [address] [place] MEDICARE SUPPLEMENT Care Teams Application Assistant Relationship Specialty Start Date End Date Yves Billings MD [address] [place] [address] PCP - General Emergency Medicine 12/20/24
--- OUTSIDE RECORDS SUMMARY | 2025-08-08 06:55 | XMS_ITS | Clinical Summary ---
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 Gender Identity Not on file Sexual Orientation Not on file Plan of Treatment Health Maintenance Due Date Last Done Comments Colorectal Cancer Screening Colonoscopy (10 Years) 1956 Hepatitis C 1974 DTaP, Tdap and Td Vaccines ( 1 - Tdap) 1975 Pneumococcal Vaccine: 50+ Ye ars (1 of 1 - PCV) 2006 Zoster Vaccines (1 of 2) 2006 COVID-19 Vaccine (1 - 2023-2 5 season) 2025 Influenza Adult (#1) 2025 RSV Immunization or 60+ Years (1 - [...] complete this topic Insurance [employer] Care Teams Binding Stitcher Relationship Specialty Start Date End Date Errol Haq MD [address] [place] [address] PCP - General FAMILY PRACTICE 01/15/21
[2025-08-08 07:55] LABS: Alanine Aminotransferase 54 U/L (6-50); Albumin Level 4.2 g/dL (3.5-5.1); Alkaline Phosphatase 78 U/L (38-126); Anion Gap 9 mmol/L (4-12); Aspartate Amino Transferase 38 U/L (17-59); Bilirubin,Total 0.8 mg/dL (0.2-1.3); Blood Urea Nitrogen 18 mg/dL (9-20); Calcium 8.9 mg/dL (8.4-10.2); Carbon Dioxide 27 mmol/L (22-30); Chloride 105 mmol/L (98-107); Cholesterol 162 mg/dL (0-200); Estimated Glomerular Filt Rate > 60; Glucose 96 mg/dL (65-110); HDL Direct 41 mg/dL; Potassium 3.7 mmol/L (3.4-5.0); Sodium 141 mmol/L (137-145); Total Protein 7.1 g/dL (6.3-8.2); Triglycerides 165 mg/dL (<150)
[2025-08-08 08:31] LABS: Prostate Specific Antigen 1.7 ng/mL (< OR = 4.0)
== END 2025-08-08 06:50 | disposition home or self-care (01) ==
LOC: ANHLAB 06:50
PROVIDERS: PCP Emergency Medicine; Visit Provider Emergency Medicine
DX: Z12.5 Encounter for screening for malignant neoplasm of prostate (principal); E78.5 Hyperlipidemia, unspecified; E55.9 Vitamin D deficiency, unspecified
CPT/HCPCS: 36415; 80053; 80061; 82306; 84153; G0103